=== PATIENT | male | born 1995 | race Caucasian/White ===

== ENCOUNTER 2018-11-02 16:10 | Emergency (ER) | payer BC ==
--- NOTE | 2018-11-02 17:43 | ULT ---
LEFT LOWER EXTREMITY DOPPLER: History: Calf pain and edema. Comparison: None. Technique: Real-time color doppler and spectral analysis of the left lower extremity venous system wa s performed. The common femoral, femoral, proximal portion of the greater saphenous and deep femoral veins as well as the popliteal and posterior tibial veins are interrogated. FINDINGS: Normal flow, augmentation and compression. IMPRESSION: No deep venous thrombosis. POS: [facility]
[2018-11-02] MEDS ORDERED: Ibuprofen 800 MG TAB ONE (17:55)
== END 2018-11-02 18:06 | disposition home or self-care (01) ==
LOC: ERS 16:10
DX: S86.912A Strain of unspecified muscle(s) and tendon(s) at lower leg level, left leg, initial encounter (principal); X58.XXXA Exposure to other specified factors, initial encounter